=== PATIENT | female | born 1935 | race Caucasian/White ===

== ENCOUNTER → 2017-11-22 | Outpatient (CLI) | payer MEDICARE, OTHER ==
[~2017-11-22] MED LIST: ASPI81EC PO; CIPR500 PO; ESOM20 PO; LEVSOD50 PO; LOSA50 PO; METO25ER PO; ROSU5 PO; [UNRECOGNIZED DRUG - OTHER]
== END | disposition home or self-care (01) ==
LOC: LAB SHORT 13:55 → LAB 13:55 → LAB FUT 11-11 13:55
PROVIDERS: Physician Assistant
DX: R19.7 Diarrhea, unspecified (principal)
CPT/HCPCS: 82710

== ENCOUNTER → 2018-08-25 | Outpatient (CLI) | payer MEDICARE, OTHER | END | disposition home or self-care (01) | LOC: LAB 11:45 → LAB SHORT 11:45 | DX: J47.9 Bronchiectasis, uncomplicated (principal) | CPT/HCPCS: 87070; 87077; 87186; 87205 ==

== ENCOUNTER 2020-01-28 22:05 | Emergency (ER) | payer MEDICARE, OTHER ==
[~2020-01-28] VITALS: Ht 160 cm; Wt 70.8 kg
[2020-01-28 22:47] LABS: BASOPHILS ABSOLUTE AUTO 0.05 K/mm3 (0.00-0.23); BASOPHILS PERCENT AUTO 0 % (0-2); EOSINOPHILS ABSOLUTE AUTO 0.07 K/mm3 (0.00-0.68); EOSINOPHILS PERCENT AUTO 0 % (0-6); Hematocrit 32.8 % (33.0-51.0); Hemoglobin 10.4 g/dL (11.5-16.0); Mean Corpuscular HGB 32.2 pg (26.0-34.0); Mean Corpuscular HGB Conc 31.7 g/dL (31.5-36.5); Mean Corpuscular Volume 102 fL (80-100); Mean Platelet Volume 9.6 fL (9.1-12.4); Platelet Count 244 K/mm3 (150-400); RDW Coefficient Variation 14.7 % (11.7-14.2); RDW Standard Deviation 54.8 fL (35.1-46.3); Red Blood Cell Count 3.23 M/mm3 (3.80-5.20); White Blood Cell Count 27.24 K/mm3 (4.00-11.30)
[2020-01-28 22:48] LABS: IMMATURE GRAN ABSOLUTE AUTO 0.11 K/mm3 (0.00-0.10); IMMATURE GRAN PERCENT AUTO 0 % (0-1); LYMPHOCYTES ABSOLUTE AUTO 18.62 K/mm3 (0.84-5.20); LYMPHOCYTES PERCENT AUTO 68 % (21-46); MONOCYTES ABSOLUTE AUTO 1.19 K/mm3 (0.16-1.47); MONOCYTES PERCENT AUTO 4 % (4-13); NEUTROPHILS PERCENT AUTO 26 % (41-73)
[2020-01-28 23:03] LABS: Albumin, Blood 2.5 g/dL (3.4-5.0); Albumin/Globulin Ratio 0.7 (0.8-1.8); Bilirubin, Total 0.4 mg/dL (0.1-1.0); Bun/Creatinine Ratio 23.1 (12.0-20.0); Calcium, Blood 10.2 mg/dL (8.5-10.1); Creatinine, Blood 1.43 mg/dL (0.40-1.00); Globulin, Blood 3.8 g/dL (2.2-4.0); Potassium, Blood 3.6 mmol/L (3.5-5.5); Total Protein, Blood 6.3 g/dL (6.4-8.2)
[2020-01-29 01:57] LABS: Adenovirus F 40/41 Not Detected (NOT DETECT); Astrovirus Not Detected (NOT DETECT); Campylobacter Sp Not Detected (NOT DETECT); Cryptosporidium Not Detected (NOT DETECT); Cyclospora Cayetanensis Not Detected (NOT DETECT); E. Coli O157 Not Detected (NOT DETECT); Entamoeba Histolytica Not Detected (NOT DETECT); Enteroaggregative E. coli-EAEC Not Detected (NOT DETECT); Enteropathogenic E. coli-EPEC Not Detected (NOT DETECT); Enterotoxigenic E. coli-ETEC Not Detected (NOT DETECT); Giardia Lamblia Not Detected (NOT DETECT); Norovirus GI/GII Not Detected (NOT DETECT); Plesiomonas Shigelloides Not Detected (NOT DETECT); Rotavirus A Not Detected (NOT DETECT); Salmonella Sp Not Detected (NOT DETECT); Sapovirus Not Detected (NOT DETECT); Shiga Toxin-prod E. coli-STEC Not Detected (NOT DETECT); Shigella/Enteroin E. coli-EIEC Not Detected (NOT DETECT); Vibrio Cholerae Not Detected (NOT DETECT); Vibrio Sp Not Detected (NOT DETECT); Yersinia Enterocolitica Not Detected (NOT DETECT)
[2020-01-29] MEDS ORDERED: Vancocin HCl125 MG PO (03:18)
== END 2020-01-29 04:07 | disposition home or self-care (01) ==
LOC: ER 22:05
PROVIDERS: Physician Assistant
DX: A04.72 Enterocolitis due to Clostridium difficile, not specified as recurrent (principal); E03.9 Hypothyroidism, unspecified; N18.9 Chronic kidney disease, unspecified; Z79.899 Other long term (current) drug therapy; Z79.82 Long term (current) use of aspirin; Z88.2 Allergy status to sulfonamides; Z88.1 Allergy status to other antibiotic agents
CPT/HCPCS: 0097U; 36415; 80053; 83690; 85025; 87324; 99284-25; J2405; J3370; J7030

== ENCOUNTER 2020-11-24 18:56 | Inpatient (IN) | payer MEDICARE, OTHER ==
[~2020-11-24] VITALS: Ht 165.1 cm; Wt 74.4 kg
[~2020-11-24 18:56] MED LIST changes: +EUTHYROX50 MCG PO; -LEVSOD50 PO; +Vancocin HCl125 MG PO
[2020-11-24 19:39] LABS: Hematocrit 34.9 % (33.0-51.0); Hemoglobin 11.5 g/dL (11.5-16.0); Mean Corpuscular HGB 31.3 pg (26.0-34.0); Mean Corpuscular Volume 95 fL (80-100); Mean Platelet Volume 9.1 fL (9.1-12.4); Platelet Count 168 K/mm3 (150-400); RDW Coefficient Variation 13.2 % (11.7-14.2); Red Blood Cell Count 3.68 M/mm3 (3.80-5.20); White Blood Cell Count 10.23 K/mm3 (4.00-11.30)
[2020-11-24 19:59] LABS: Albumin/Globulin Ratio 0.9 (0.8-1.8); Bilirubin, Total 0.3 mg/dL (0.1-1.0); Bun/Creatinine Ratio 23.9 (12.0-20.0); Calcium, Blood 8.7 mg/dL (8.5-10.1); Creatinine, Blood 1.84 mg/dL (0.40-1.00); Globulin, Blood 3.4 g/dL (2.2-4.0); Potassium, Blood 4.4 mmol/L (3.5-5.5); Total Protein, Blood 6.4 g/dL (6.4-8.2)
[2020-11-24 20:04] LABS: Source, Urine Catheter
[2020-11-24 20:07] LABS: Appearance, Urine Hazy (Clear); Bilirubin, Urine Neg (Neg); Blood, Urine 2+ (Neg); Color, Urine Yellow (P-Yellow); Glucose Qualitative, Urine Neg (Neg); Ketones, Urine 1+ (Neg); Leukocyte Esterase, Urine Neg (Neg); Nitrite, Urine Neg (Neg); Protein, Urine 4+ (Neg); Urobilinogen, Urine NORM (Normal)
[2020-11-24 20:15] LABS: Amorphous Heavy (0-Heavy); Bacteria Few /hpf; Granular Casts 0-2 /lpf (0); Red Blood Cells, Urine 0-2 /hpf (0-2); Squamous Epithelial Cells Not Seen /hpf (Few); White Blood Cells, Urine 0-2 /hpf (0-5)
[2020-11-24 20:22] LABS: SARS-Cov-2 (COVID-19) PCR, MMC POSITIVE (NEGATIVE)
[2020-11-24 20:32] LABS: BAND PERCENT MAN 3 % (0-8); BASOPHILS PERCENT MAN 0 % (0-2); EOSINOPHILS PERCENT MAN 0 % (0-6); LYMPHOCYTES % ATYPICAL MANUAL 1 % (0-0); LYMPHOCYTES ABSOLUTE MAN 2.86 K/mm3 (0.84-5.20); LYMPHOCYTES PERCENT MAN 27 % (21-46); MONOCYTES ABSOLUTE MAN 0.61 K/mm3 (0.16-1.47); MONOCYTES PERCENT MAN 6 % (4-13); NEUTROPHILS ABSOLUTE MAN 6.75 K/mm3 (1.96-9.15); SEG NEUTROPHILS PERCENT MAN 63 % (41-73); TOTAL CELLS COUNTED 100
[2020-11-24] MEDS ORDERED: LOSA50 PO (21:34)
[2020-11-24] MEDS ORDERED: IPRAT-ALBUT 0.5-3 ML INH (21:36)
[2020-11-24] MEDS ORDERED: ONE-A-DAY PRO200 MCG (21:37)
[2020-11-24] MEDS ORDERED: ERGO400 (21:37)
[2020-11-25 06:19] LABS: BASOPHILS ABSOLUTE AUTO 0.02 K/mm3 (0.00-0.23); BASOPHILS PERCENT AUTO 0 % (0-2); EOSINOPHILS PERCENT AUTO 0 % (0-6); Hematocrit 36.9 % (33.0-51.0); Hemoglobin 11.6 g/dL (11.5-16.0); IMMATURE GRAN ABSOLUTE AUTO 0.07 K/mm3 (0.00-0.10); IMMATURE GRAN PERCENT AUTO 1 % (0-1); LYMPHOCYTES ABSOLUTE AUTO 1.31 K/mm3 (0.84-5.20); LYMPHOCYTES PERCENT AUTO 14 % (21-46); MONOCYTES ABSOLUTE AUTO 0.45 K/mm3 (0.16-1.47); MONOCYTES PERCENT AUTO 5 % (4-13); Mean Corpuscular HGB 31.5 pg (26.0-34.0); Mean Corpuscular HGB Conc 31.4 g/dL (31.5-36.5); Mean Platelet Volume 9.4 fL (9.1-12.4); NEUTROPHILS ABSOLUTE AUTO 7.72 K/mm3 (1.96-9.15); NEUTROPHILS PERCENT AUTO 81 % (41-73); Platelet Count 150 K/mm3 (150-400); RDW Coefficient Variation 13.2 % (11.7-14.2); RDW Standard Deviation 49.2 fL (35.1-46.3); Red Blood Cell Count 3.68 M/mm3 (3.80-5.20); White Blood Cell Count 9.57 K/mm3 (4.00-11.30)
[2020-11-25 06:20] LABS: Mean Corpuscular Volume 100 fL (80-100)
[2020-11-25 06:43] LABS: Albumin, Blood 2.6 g/dL (3.4-5.0); Albumin/Globulin Ratio 0.7 (0.8-1.8); Bilirubin, Total 0.3 mg/dL (0.1-1.0); Bun/Creatinine Ratio 23.3 (12.0-20.0); Calcium, Blood 8.1 mg/dL (8.5-10.1); Creatinine, Blood 1.8 mg/dL (0.40-1.00); Globulin, Blood 3.5 g/dL (2.2-4.0); Potassium, Blood 5.1 mmol/L (3.5-5.5); Total Protein, Blood 6.1 g/dL (6.4-8.2)
--- NOTE | 2020-11-25 17:43 | NUR ---
1540 PT ADMITTED TO MEDICAL FLOOR VIA GURNEY, PT TRANSFERED TO BED WITH ONE ASSIST, PT IS UNSTEADY AND WEAK APPEARING. PT DENIES PAIN, N/V. PT REPORTS SOB WITH EXERTION, ON 2.5L O2 NC, LUNGS COARSE T/O. SKIN CDI. A&OX3, PLEASANT AND COOPERATIVE, AGUA CALIENTE. NO NEW CHANGES OR CONCERNS.
--- NOTE | 2020-11-26 05:09 | NUR ---
RN summary: Patient is pale. Skin warm and dry. Pt is [place] and staff wearing N95 mask hinders pt being able to lip read. Pt was oriented to self, place. Unsure of month and city hospital was in. Pt has been up x1 to the bedside commode. Pt moves slowly. Breath sounds were diminished but no crackles or wheezing heard. Pt is on 2.5 Liters of O2 NC. Pt not c/o SOB, no evidence of any respiratory distress. Pt has rested well. Pt has used the call light appropriately. Bed alarm on. Pt is in enhanced isolation precautions.
[2020-11-26 08:08] LABS: Bun/Creatinine Ratio 32.1 (12.0-20.0); Calcium, Blood 8.5 mg/dL (8.5-10.1); Creatinine, Blood 1.65 mg/dL (0.40-1.00); Potassium, Blood 4.8 mmol/L (3.5-5.5)
--- NOTE | 2020-11-26 17:37 | NUR ---
SHIFT SUMMARY PATIENT IS ALERT AND SITTING UP IN BED. SHE IS [place] AND CONFUSED ON SOME COMMANDS, BUT ORIENTED TO HERSELF AND THE FACT THAT SHE IS IN THE HOSPITAL.SHE IS UP AT BEDSIDE COMMODE WITH ONE ASSIST, BUT NEEDS MONITORING BECAUSE OF WEAKNESS, LOW O2, AND BALANCE ISSUES. PATIENT WAS ASSESSED BY RT AND TO SEE IF SHE COULD BE DISCHARGED, BUT IT WAS ULTIMATELY DECIDED THAT SHE IS TOO GREAT A FALL RISK AND CANNOT MAINTAIN HER O2 SATS WELL ENOUGH. , GUILLERMO, HAS BEEN INFORMED ABOUT HER STATUS AND WOULD LIKE TO BE KEPT UPDATED. HIS INFO IS IN HER PAPER CHART.
[2020-11-27 05:45] LABS: Bun/Creatinine Ratio 36.5 (12.0-20.0); Calcium, Blood 8.5 mg/dL (8.5-10.1); Creatinine, Blood 1.56 mg/dL (0.40-1.00); Potassium, Blood 4.6 mmol/L (3.5-5.5)
--- NOTE | 2020-11-27 07:50 | NUR ---
Rn summary: Patient is [place], sl confused. Does not use call light, bed alarm on, up freq to BSC. Pt does follow simple commands. Pt is on 4 liters O2 sats >90%. Pt has crackles dung bases. States she does feel SOB, which increases with activity. Covid + Isolation continues.
--- NOTE | 2020-11-27 19:21 | NUR ---
SHIFT SUMMARY PATIENT VERY DYSPNEIC AND CLIMBING OUT OF BED FREQUENTLY DURING SHIFT. OXYGEN TITRATED TO 15L/HI FLOW TO MAINTAIN OXYGEN SATURATION ABOVE 92%. PATIENT WORK OF BREATHING AND RESPIRATORY RATE INCREASED TO OVER 40, PATIENT PLACED ON V60 BIPAP. PATIENT PULLING BIPAP MASK OFF AND SETTING OFF BED ALARM SEVERAL TIMES PER HOUR. CALL TO DR. HERNANDEZ, NEW ORDERS FOR ATIVAN Q2. ALTERNATING BIPAP AND HIFLOW DUE TO BIPAP MASK INTOLERANCE. BED ALARM ON. PATIENT CONFUSED AND PULLING AT LINES, FREQUENT REDIRECTION AND REASSURANCE NEEDED. CALL TO TO UPDATE ON PATIENT STATUS.
--- NOTE | 2020-11-27 22:52 | NUR ---
PT UPDATE PT ATTEMPTING TO GET UP OUT OF BED, THIS RN TO BEDSIDE. PT C/O SORE THROAT STATES SHE NEEDS TO GET UP BECAUSE HER THROAT HURTS. DOES NOT FOLLOW DIRECTIONS. IS CONFUSED SATS 94-95% ON 11 L VIA NC AT THIS TIME. PT GIVEN SMALL SIPS OF WATER. AGREES THAT IT HELPED HER THROAT WHEN THIS RN ASKS. PT OTHERWISE DOES NOT RESPOND TO QUESTIONS, QUIETLY MOANS, OCCASIONAL COUGH.
--- NOTE | 2020-11-27 23:30 | NUR ---
TRANSFER REPORT GIVEN DOORMAKER TO ASSUME CARE OF PT. PT RESTING COMFORTABLY IN BED ON 15L O2 BEFORE TRANSFER. SATS UUPER 90'S ON ESTRELLA BIOX. PHYSICAL ASSESSMENT REMAINS UNCHANGED. NO COMPLAINTS OF PAIN. PT VERY DROWSY BUT AWAKES TO VERBAL STIMULI. PT WILL NOT KEEP BIPAP ON THUS [address] VITALS ARE STB[place]. PT TRANSFERRED TO PCU 9 AT 2200, BELONGINGS IN PLACE.
--- NOTE | 2020-11-27 23:42 | NUR ---
PT UPDATE PT FINISHES BREATHING TX, TITRATED DOWN TO 8 L 02 ON HIGH FLOW NC D/T SATS 97-98% AT THIS TIME. PT APPEARS LESS RESTLESS AND IS QUIETER FOLLOWING DOSE OF TYLENOL AND ATIVAN.
[2020-11-28 04:22] LABS: BASOPHILS ABSOLUTE AUTO 0.03 K/mm3 (0.00-0.23); BASOPHILS PERCENT AUTO 0 % (0-2); EOSINOPHILS PERCENT AUTO 0 % (0-6); Hematocrit 33.9 % (33.0-51.0); Hemoglobin 11.3 g/dL (11.5-16.0); IMMATURE GRAN ABSOLUTE AUTO 0.25 K/mm3 (0.00-0.10); IMMATURE GRAN PERCENT AUTO 2 % (0-1); LYMPHOCYTES ABSOLUTE AUTO 0.51 K/mm3 (0.84-5.20); LYMPHOCYTES PERCENT AUTO 4 % (21-46); MONOCYTES ABSOLUTE AUTO 0.97 K/mm3 (0.16-1.47); MONOCYTES PERCENT AUTO 7 % (4-13); Mean Corpuscular HGB 31.5 pg (26.0-34.0); Mean Corpuscular HGB Conc 33.3 g/dL (31.5-36.5); Mean Platelet Volume 9.6 fL (9.1-12.4); NEUTROPHILS ABSOLUTE AUTO 11.71 K/mm3 (1.96-9.15); NEUTROPHILS PERCENT AUTO 87 % (41-73); Platelet Count 216 K/mm3 (150-400); RDW Coefficient Variation 13.2 % (11.7-14.2); RDW Standard Deviation 45.6 fL (35.1-46.3); Red Blood Cell Count 3.59 M/mm3 (3.80-5.20); White Blood Cell Count 13.47 K/mm3 (4.00-11.30)
[2020-11-28 04:23] LABS: Mean Corpuscular Volume 94 fL (80-100)
[2020-11-28 04:50] LABS: Bun/Creatinine Ratio 38.5 (12.0-20.0); Calcium, Blood 8.5 mg/dL (8.5-10.1); Creatinine, Blood 1.48 mg/dL (0.40-1.00); Potassium, Blood 4.6 mmol/L (3.5-5.5)
--- NOTE | 2020-11-28 07:46 | NUR ---
SHIFT SUMMARY PT AOX1. SOMETIMES STATES NEEDS, DOES NOT ANSWER QUESTIONS MOST OF THE TIME. IS DIFFICULT TO REDIRECT. UP TO BEDSIDE COMMODE W/STAFF, NEEDS X2 PERSON ASSIST W/GAIT BELT. WEARING ATTENDS, OCCASIONAL SMALL AMOUNTS OF URINE IN ATTENDS. TRIED TO DRINK FROM REMOTE/CALL LIGHT. SOMETIMES REACHES FOR THINGS SHE SEEMS TO IMAGINE IN AIR, GRABS AT STAFF GOWNS. TOOK OFF NC X3 TIMES IN NIGHT. OTHERWISE RESTFUL WHEN ENCOURAGED TO REPOSITION AND PROP W/PILLOWS W/ASSISTANCE FOR BRIEF PERIODS. TACHYPNEIC 30'S-40'S. C/O PAIN, NON-SPECIFIC. WAS C/O SORE THROAT ON ARRIVAL FROM MED FLOOR.
[2020-11-28 15:27] LABS: Source, Urine Catheter
[2020-11-28 15:45] LABS: Appearance, Urine Hazy (Clear); Bilirubin, Urine Neg (Neg); Blood, Urine 3+ (Neg); Color, Urine Yellow (P-Yellow); Glucose Qualitative, Urine Neg (Neg); Ketones, Urine Neg (Neg); Leukocyte Esterase, Urine Neg (Neg); Nitrite, Urine Neg (Neg); Protein, Urine 4+ (Neg); Urobilinogen, Urine NORM (Normal)
[2020-11-28 15:56] LABS: Amorphous Light (0-Heavy); Hyaline Casts 0-2 /lpf (0-2); Red Blood Cells, Urine 0-2 /hpf (0-2)
[2020-11-28 15:57] LABS: Bacteria Many /hpf; Transitional Epithelial Cells Rare /hpf (0-Rare)
[2020-11-28 15:58] LABS: Squamous Epithelial Cells Rare /hpf (Few)
--- NOTE | 2020-11-28 18:10 | NUR ---
SHIFT SUMMARY PT WAS VERY RESTLESS AT THE START OF SHIFT, PT WAS PULLING OFF HER O2 AND TELE AND TRYING TO GET OUT OF BED. PT IS A HIGH FALL RISK SHE IS WEAK WITH UNSTEADY GAIT. PT IS CONFUSED AND DOES NOT FOLLOW DIRECTION. PT WAS PLACED IN SOFT BILATERAL WRIST RESTRAINTS. PT HAS BEEN MOANING AND OCCASSIONALLY RESTLESS AND HAS RECEIVED ATIVAN AND MEDICATED PER EMAR FOR WHAT SEEMS TO BE ANXIETY. PT HAS BEEN TACHYCARDIC THIS AFTERNOON AND RN CATRINAO ADDRESSED THIS MULTIPLE TIMES WITH THE DR AND PT WAS ORDERED 1 500ML BAG OF NS TO RUN AT 100ML; NO CHANGES WITH HR OF YET, PT IS SUSTAINING 100-120bpm. PT HAS NOT BEEN VERY VERBAL TODAY, UNABLE TO MAKE HER NEEDS KNOWN. PT IS UNABLE TO FOLLOW DIRECTIONS AND WILL NOT OPEN HER EYES TO SAFELY GET OUT OF BED. PT IS RESTING IN BED AT THIS TIME
--- NOTE | 2020-11-28 22:19 | NUR ---
PHYSICIAN CONTACT O2 SATS IN THE LOW 80S DESPITE 15L HIGH FLOW. ADDITIONAL 15L NONREBREATHER PLACED, RT CALLED TO BEDSIDE DESPITE SATS AT 82. BIPAP PLACED 03/29 FI02 100% RR IN THE MID 40S-50S, SATS MAINTAINING AT 92 CURRENTLY. JORDAN MAN PROVIDER NOTIFIED, NO NEW ORDERS AT THIS TIME. WILL CONTINUE TO MONITOR.
[2020-11-29 00:41] LABS: PCO2 Arterial 61.8 mmHg (35-45); PO2 Arterial 85.8 mmHg (80-100); pH Blood Arterial 7.17 (7.35-7.45)
--- NOTE | 2020-11-29 01:43 | NUR ---
UPDATE: DR. SANDOVAL SPOKE WITH PT'S , AT THIS TIME HE WOULD LIKE TO CONTINUE FULL CODE/FULL TX. NEW ORDERS FOR SODIUM BICARB, LASIX, AND REMDESIVIR. CURRENTLY WAITING FOR 2ND ABG RESULTS. PT CONTINUES TO HAVE INCREASED WORK OF BREATHING ON BIPAP WITH RR IN THE MID 40S, IV ATIVAN GIVEN. SATS MAINTAINING ABOVE 90. WILL CONTINUE TO MONITOR.
[2020-11-29 01:53] LABS: PCO2 Arterial 50.1 mmHg (35-45); PO2 Arterial 81.2 mmHg (80-100)
[2020-11-29 01:54] LABS: pH Blood Arterial 7.25 (7.35-7.45)
--- NOTE | 2020-11-29 04:43 | NUR ---
PT CONTINUES TO HAVE AN INCREASED WORK OF BREATHING WITH RR MID 40S TO 50S. SATS MAINTAINED ABOVE 92 ON BIPAP. IV ATIVAN AND MORPHINE GIVEN. WILL CONTINUE TO MONITOR.
[2020-11-29 06:10] LABS: Hematocrit 36.8 % (33.0-51.0); Hemoglobin 11.8 g/dL (11.5-16.0); Mean Corpuscular HGB 31.4 pg (26.0-34.0); Mean Corpuscular HGB Conc 32.1 g/dL (31.5-36.5); Mean Corpuscular Volume 98 fL (80-100); Mean Platelet Volume 9.9 fL (9.1-12.4); NRBC ABSOLUTE 0.02 K/mm3 (0.00-0.02); NRBC Auto 0.1 /100 WBC (0.0-0.2); Platelet Count 249 K/mm3 (150-400); RDW Coefficient Variation 13.3 % (11.7-14.2); Red Blood Cell Count 3.76 M/mm3 (3.80-5.20); White Blood Cell Count 25.15 K/mm3 (4.00-11.30)
[2020-11-29 06:38] LABS: Bun/Creatinine Ratio 32.1 (12.0-20.0); Calcium, Blood 8.3 mg/dL (8.5-10.1); Creatinine, Blood 2.09 mg/dL (0.40-1.00); Magnesium, Blood 2.6 mg/dL (1.6-2.4); Phosphorus, Blood 4.5 mg/dL (2.5-4.9); Potassium, Blood 5.3 mmol/L (3.5-5.5)
[2020-11-29 06:45] LABS: BAND PERCENT MAN 9 % (0-8); BASOPHILS PERCENT MAN 0 % (0-2); EOSINOPHILS PERCENT MAN 0 % (0-6); MONOCYTES ABSOLUTE MAN 0.75 K/mm3 (0.16-1.47); MONOCYTES PERCENT MAN 3 % (4-13); NEUTROPHILS ABSOLUTE MAN 24.39 K/mm3 (1.96-9.15); SEG NEUTROPHILS PERCENT MAN 88 % (41-73); TOTAL CELLS COUNTED 100
--- NOTE | 2020-11-29 08:49 | NUR ---
REPORT GIVEN TO ALBERTO CEJA RN, PT TO BE TRANSFERRED TO ICU 4. PT'S INFORMED OF PT'S MOVE TO ICU VIA T/C.
--- NOTE | 2020-11-29 10:00 | NUR ---
TRANSFER NOTE- PT TRANSFERRED FROM MEDICAL FLOOR TO ICU IN BED. PT UNRESPONSIVE, MOVING SPONTANEOUSLY IN BED, PULLING AT LINES. UNABLE TO FOLLOW ANY DIRECTIONS. RESPIRATORY DISTRESS-RESP RATE 44-48 BPM ON BIPAP, LUNGS COARSE WITH EXP WHEEZES AND DECREASED LEFT BASE. PERRL. NSR TO SINUS TACH. SKIN COLOR PALE, COOL. UO VIA [address] COURT. NO EDEMA. DRESSING ON COCCYX INTACT.
--- NOTE | 2020-11-29 10:50 | NUR ---
POWER GLIDE PLACED TO RIGHT UPPER ARM BY JAVIER HERNANDEZ. PIV TO RIGHT WRIST. NOTIFICATION TO OF PT'S DECLINING STATUS, NEED TO TRANSFER TO ICU, INTUBATION, FULL CODE. DR. LE AT BEDSIDE-INTUBATED WITH 8.0 ETT, POSITIVE BREATH SOUNDS AND COLOR CHANGE 1030-PROPOFOL 50 MG GIVEN. RT AT BEDSIDE BAGGING PT. 1031-ROCURONIUM 50 MG GIVEN 1032-INTUBATED WITHOUT DIFFICULTY 24 AT THE GUMS 1033-PROPOFOL 50 MG HYPOTENSIVE AFTER INTUBATION, RESPONSIVE TO FLUID BOLUS AND PHENYLEPHRINE TOTAL 300MG GIVEN BY DR. LE TO VENT SETTINGS-AC 22 TV 350 PEEP 5 FI02 100%. SUCTIONED FOR LARGE AMOUNT BROWN SECRETIONS-SPECIMEN SENT. OGT PLACED BY DR. LE, POSITION VERIFIED BY AIR BOLUS AND RETURN OF DARK GREEN SECRETIONS. POST XRAY DONE.
--- NOTE | 2020-11-29 13:12 | NUR ---
PT'S HERE-UPDATED. STATES TALKED WITH PT'S SALES HUNTER IN [place]-SUGGESTS TWO MORE DAYS OF TREATMENT AND THEN REEVAULATE. EXPLAINED PLAN OF CARE. FLUID BOLUS INFUSING WITH IMPROVED BLOOD PRESSURE. MOVING, RESTLESS IN BED. PROPOFOL INCREASED FOR SEDATION.
[2020-11-29 15:03] LABS: PCO2 Arterial 36.1 mmHg (35-45); PO2 Arterial 46 mmHg (80-100); pH Blood Arterial 7.39 (7.35-7.45)
--- NOTE | 2020-11-29 15:12 | NUR ---
Patient is lying in bed and sleeping. Patient's spouse, Neel, is in the hallway outside patient's rm in a wheelchair and heading out to his car. I push the wheelchair the wheel chair and we talk about their 54 yr marriage and how challenging it is to be seperated and to see her struggling. He also explains about her [place]. I provide therapeutic listening, companionship and a calming presence. Neel responds well and shows signs of increased hope. I will continue to remain available to patient and family.
[2020-11-29 16:13] LABS: Base Excess Venous -2.3 mmol/L; Bicarbonate Venous 22.3 mmol/L (24.0-30.0); PCO2 Venous 42 mmHg (38-42); PO2 Venous 51 mmHg (38-42); pH Blood Venous 7.35 (7.34-7.37)
--- NOTE | 2020-11-29 16:58 | NUR ---
RIGHT ARM PICC LINE PLACED BY JAVIER HERNANDEZ, PCXR DONE, VBG DONE AND TRANSDUCED LINE WITH MEAN OF 11 MMHG. OK TO USE PER DR. LE. VENT CHANGES, NEEDED TO INCREASE FI02 TO MAINTAIN SATURATIONS. RESTLESS, REPOSITIONED AND PROPOFOL AT 40 MCG/KG/MIN FOR VENT TOLERANCE. HYPOTENSIVE, HAS HAD 3 LITERS FLUID. LOW URINE OUTPUT. WILL START LEVOPHED
--- NOTE | 2020-11-29 17:17 | NUR ---
LEVOPHED STARTED FOR HYPOTENSION.
--- NOTE | 2020-11-29 19:00 | NUR ---
UDPATE TO DR. LE REGARDING UO, HYPOTENSION, TACHYCARDIC 100-120. PLANS TO CHANGE TO NEOSYNEPHRINE. PT'S DAUGHTER HERE-UPDATED.
--- NOTE | 2020-11-29 23:24 | NUR ---
ASSUMED CARE AT 1900 PT LAYING IN BED INTUBATED WITH VENT SETTINGS AC/VC+ 22, TV 350, PEEP 5, FIO2 95%; LARGE AMOUNT OF THICK BROWN/GREEN SECREATIONS FROM ETT. PT REACTIVE TO NOXIOUS STIMULI; WEAK GAG AND COUGH; PROPOFOL INFUSING AT 45MCG/KG/MIN. AFEBRILE. HR 70-80'S; IRREGULAR RHYTHM. LEVOPHED DC'D AND KENNY STARTED AT THE BEGINING OF SHIFT; KENNY TITRATED UP TO 40MCG/MIN. OG TO LIS. HAMILTON IN PLACE AND DRAINING TO GRAVITY. PICC TO DEBORA PATENT WITH DRESSING C/D/I. LR INFUSING AT 150ML/HR. SEE SHIFT ASSESSMENT FOR FULL ASSESSMENT.
[2020-11-30 04:13] LABS: Hematocrit 29.4 % (33.0-51.0); Hemoglobin 9.7 g/dL (11.5-16.0); Mean Corpuscular HGB 31.8 pg (26.0-34.0); Mean Corpuscular Volume 96 fL (80-100); Mean Platelet Volume 10.3 fL (9.1-12.4); NRBC ABSOLUTE 0.03 K/mm3 (0.00-0.02); NRBC Auto 0.1 /100 WBC (0.0-0.2); Platelet Count 249 K/mm3 (150-400); RDW Coefficient Variation 13.6 % (11.7-14.2); RDW Standard Deviation 48.1 fL (35.1-46.3); Red Blood Cell Count 3.05 M/mm3 (3.80-5.20); White Blood Cell Count 21.13 K/mm3 (4.00-11.30)
[2020-11-30 04:28] LABS: Bun/Creatinine Ratio 32.9 (12.0-20.0); Calcium, Blood 8.3 mg/dL (8.5-10.1); Creatinine, Blood 1.73 mg/dL (0.40-1.00); Magnesium, Blood 2.2 mg/dL (1.6-2.4); Phosphorus, Blood 2.3 mg/dL (2.5-4.9); Potassium, Blood 4.9 mmol/L (3.5-5.5)
[2020-11-30 04:55] LABS: PCO2 Arterial 35.4 mmHg (35-45); PO2 Arterial 78.7 mmHg (80-100)
--- NOTE | 2020-11-30 04:55 | NUR ---
UPDATE DURING REASSESSMENT AT 0400 ALONG WITH CHEST X-RAY PT SPO2 DECREASED TO LOW 80'S WITH RR IN HIGH 40'S, PT MORE ALERT AND PULLING AT RESTRAINTS. FIO2 INCREASED UP TO 100% AND PROPOFOL TITRATED UP TO 60MCG/KG/MIN. SPO2 NOW 97% AND RR 22-28.
--- NOTE | 2020-11-30 06:35 | NUR ---
END OF SHIFT SUMMARY PT CONT TO BE INTUBATED WITH VENT SETTINGS AC/VC+ 22, TV 350, PEEP 5, FIO2 100%; LARGE AMOUNT OF BROWN/GREEN THICK ETT SECREATIONS. WHEN PROPOFOL LOWERED, PT RR INCREASED, HR INCREASED, INCREASED RESTLESSNESS AND SPO2 DECREASED; PROPOFOL NOW INFUSING AT 60MCG/KG/MIN AND NOW VSS. AFEBRILE. HR 60-70. SBP 100-120; KENNY INFUSING AT 40MCG/MIN; MAP >65. OG TO LIS WITH 300ML OF GREEN OUTPUT. HAMILTON PATENT AND DRAINING TO GRAVITY. PICC TO DEBORA PATENT AND DRESSING C/D/I. LR INFUSING AT 150ML/HR. WILL REPORT TO AM RN WHEN AVIALABLE.
[2020-11-30 06:46] LABS: BAND PERCENT MAN 3 % (0-8); BASOPHILS PERCENT MAN 0 % (0-2); EOSINOPHILS PERCENT MAN 0 % (0-6); LYMPHOCYTES ABSOLUTE MAN 0.63 K/mm3 (0.84-5.20); LYMPHOCYTES PERCENT MAN 3 % (21-46); METAMYELOCYTE ABSOLUTE MAN 0.21 K/mm3 (0.00-0.00); METAMYELOCYTE PERCENT MAN 1 % (0-0); MONOCYTES ABSOLUTE MAN 0.63 K/mm3 (0.16-1.47); MONOCYTES PERCENT MAN 3 % (4-13); NEUTROPHILS ABSOLUTE MAN 19.65 K/mm3 (1.96-9.15); SEG NEUTROPHILS PERCENT MAN 90 % (41-73); TOTAL CELLS COUNTED 100
--- NOTE | 2020-11-30 08:15 | NUR ---
ASSESSMENT- PT SEDATED WITH PROPOFOL AT 60 MCG/KG/MIN, QUIET. DECREASED TO 50 MCG/KG/MIN. DOES BECOME SLIGHTLY RESTLESS WITH REPOSITIONING BUT THEN QUICKLY QUIETS.ORALLY INTUBATED, TUBE SECURE. TOLERATING VENT SETTINGS. 100% FI02, SATURATIONS STABLE. LUNGS COARSE WITH WHEEZES LEFT SIDE, DIMINISHED BASES. APICAL REGULAR, NSR. BP STABLE. NEOSYNEPHRINE GTT AT 40 MCG/MIN-DECREASED TO 20 MCG/MIN. NS TKO. RIGHT UPPER ARM PICC INTACT, RIGHT WRIST PIV INTACT. ABDOMEN SOFT, NO BOWEL SOUNDS HEARD. OGT TO LIS WITH GREEN DRAINAGE. UO VIA HAMILTON. BILATERAL WRIST RESTRAINTS ON-EXTUBATION RISK. REPOSITIONED TO HIGH LEFT SIDE. LARGE AMOUNT ETT SECRETIONS MCCAULEY.
--- NOTE | 2020-11-30 10:14 | NUR ---
ATTEMPT SEDATION HOLIDAY, RESTLESS, INCREASED RESP RATE UP TO 40'S. UNABLE TO FOLLOW DIRECTIONS. OXYGEN SATURATIONS DECREASED TO 87% BACK TO SEDATION
--- NOTE | 2020-11-30 10:50 | NUR ---
CALL FROM RADIOLOGIST REGARDING ETT POSITION, TUBE REPOSITIONED, DR. WHITE NOTIFIED. XRAY DONE TO VERIFY. ETT 24 AT THE GUM NOW
--- NOTE | 2020-11-30 11:47 | NUR ---
PT RESTLESS, SHRUGGING SHOULDERS, INCREASED RESPIRATORY RATE. DR. WHITE HERE-RX X 2 WITH FENTANYL WITH IMPROVEMENT. VENT CHANGES-PEEP INCREASED TO 8 AND FIO2 DECREASED TO 80%. LR D/C. REPOSITIONED.
--- NOTE | 2020-11-30 14:01 | NUR ---
HAS BEEN TOLERATING VENT AFTER RX WITH FENTANYL. FENTANYL EHS TEACHER STARTED AT 25 MCG/HR PER ORDERS. REPOSITIONED. MAINTAINING SATURATIONS. KENNY RESTARTED FOR BP SUPPORT-AT 40 MCG/MIN. REMAINS SR
--- NOTE | 2020-11-30 15:45 | NUR ---
ETT RESECURED BY R.T. TO 24 JEANE. LUNG SOUNDS COARSE, DIMINISHED BASES. TOLERATING VENT. DECREASING PROPOFOL.
--- NOTE | 2020-11-30 18:12 | NUR ---
REPOSITIONED. PROPOFOL AT 40 MCG/KG/MIN FOR SEDATION, FENTANYL GTT AT 25 MCG/HR. SEDATED, TOLERATING VENT SETTINGS. VSS. NEOSYNEPHRINE AT 40 MCG/MIN FOR BP SUPPORT. NS TKO. PICC INTACT. TUBE FEEDING VIA OGT INFUSING. URINE OUTPUT ADEQUATE.
--- NOTE | 2020-11-30 19:00 | NUR ---
ASSUMED CARE ASSUMED CARE OF PATIENT. REMAINS INTUBATED- AC/VC 22/350, PEEP 8, FIO2 65%. SEDATED WITH PROPOFOL AT 40MCG/KG/MIN. FENTANYL GTT AT 25MCG/HR FOR SEDATION ADJUNCT AND FOR COMFORT. MONITOR SHOWS SR WITH BBB, RATE 70s. NEOSYNEPHRINE AT 40MCG/MIN TO MAINTAIN MAP >65. OG WITH VITAL HIGH PROTEIN AT GOAL RATE OF 25CC/HR. HAMILTON PATENT AND DRAINING TO GRAVITY. SEE SHIFT ASSESSMENT FOR FULL ASSESSMENT.
--- NOTE | 2020-12-01 | NUR ---
NEOSYNEPHRINE ATTEMTPTED TO TURN NEOSYNEPHRINE GTT OFF, BUT BP NOW 93/50(57). GTT RESTARTED AT 25MCG/MIN AT THIS TIME.
[2020-12-01 06:11] LABS: BASOPHILS ABSOLUTE AUTO 0.02 K/mm3 (0.00-0.23); BASOPHILS PERCENT AUTO 0 % (0-2); EOSINOPHILS PERCENT AUTO 0 % (0-6); Hematocrit 27.6 % (33.0-51.0); IMMATURE GRAN ABSOLUTE AUTO 0.33 K/mm3 (0.00-0.10); IMMATURE GRAN PERCENT AUTO 2 % (0-1); LYMPHOCYTES ABSOLUTE AUTO 0.28 K/mm3 (0.84-5.20); LYMPHOCYTES PERCENT AUTO 1 % (21-46); MONOCYTES ABSOLUTE AUTO 0.71 K/mm3 (0.16-1.47); MONOCYTES PERCENT AUTO 4 % (4-13); Mean Corpuscular HGB 31.8 pg (26.0-34.0); Mean Corpuscular HGB Conc 32.6 g/dL (31.5-36.5); Mean Corpuscular Volume 98 fL (80-100); Mean Platelet Volume 10.5 fL (9.1-12.4); NEUTROPHILS ABSOLUTE AUTO 18.58 K/mm3 (1.96-9.15); NEUTROPHILS PERCENT AUTO 93 % (41-73); NRBC ABSOLUTE 0.02 K/mm3 (0.00-0.02); NRBC Auto 0.1 /100 WBC (0.0-0.2); Platelet Count 213 K/mm3 (150-400); RDW Coefficient Variation 13.7 % (11.7-14.2); Red Blood Cell Count 2.83 M/mm3 (3.80-5.20); White Blood Cell Count 19.92 K/mm3 (4.00-11.30)
[2020-12-01 06:16] LABS: Bun/Creatinine Ratio 31.5 (12.0-20.0); Calcium, Blood 7.6 mg/dL (8.5-10.1); Creatinine, Blood 1.68 mg/dL (0.40-1.00); Phosphorus, Blood 2.7 mg/dL (2.5-4.9); Potassium, Blood 4.4 mmol/L (3.5-5.5)
--- NOTE | 2020-12-01 06:38 | NUR ---
SHIFT SUMMARY NO ACUTE CHANGES. REMAINS INTUBATED- VENT SETTINGS UNCHANGED EXCEPT FIO2 INCREASED TO 75%. SEDATED WITH PROPOFOL AT 40MCG/KG/MIN AND FENTANYL AT 25MCG/HR. MOVES EXTREMITIES SPONTANEOUSLY AND PURPOSEFULLY, BUT NOT FOLLOWING COMMANDS. BILATERAL SOFT WRIST RESTRAINTS IN PLACE TO PREVENT SELF-EXTUBATION. NEOSYNEPHRINE CONTINUES AT 25MCG/MIN TO MAINTAIN MAP >65. VITAL HIGH PROTEIN AT GOAL RATE OF 25CC/HR. RESIDUALS <10CC. HAMILTON PATENT AND DRAINING TO GRAVITY. WILL REPORT TO ONCOMING RN WHEN AVAILABLE.
--- NOTE | 2020-12-01 08:30 | NUR ---
ASSUMPTION OF CARE RECEIVED REPORT FROM TUAN HERNANDEZ AT 0700, ASSUMED CARE OF PATIENT. PATIENT INTUBATED AND SEDATED ON PROPOFOL OF 40MCG/KG/MIN, VENT AC 22/350/8/75%. SATS 88-89%. PATIENT BEGAN DROPPING 02 SATS TO 86-87% AT 0815. SUCTION PROVIDED, NOTIFIED RT AND DR. WHITE AT 0825 FIO2 INCREASED TO 80% AND PEEP INCREASED TO 10. RR IN THE 30'S. INCREASED PROPOFOL TO 45MCG/KG/MIN. WILL REVIEW ORDERS AND TREAT PRESCRIBED.
--- NOTE | 2020-12-01 18:29 | NUR ---
SHIFT SUMMARY PATIENT INTUBATED WITH SETTINGS OF AC 22/350/10/90%, FIO2 WAS INCREASED FROM 75 TO 90 THROUGH MORNING DUE TO 02 SATS BELOW 87%. SUCTIONING THICK, MCCAULEY SPUTUM VIA ETT FREQUENTLY. 02 SATS AT THIS TIME REMAIN 90-93. SEDATED WITH PROPOFOL OF 50MCG/KG/MIN, PATIENT WAKEFUL, RAPID RESP OF 30-40S WHEN PROPOFOL WAS LOWERED. FENTANYL CHAIN MAKER CONTINUES AT 25MCG/HR. KENNY INFUSES AT 30MCG PER B/P TO KEEP MAP ABOVE 65. TF REMAIN AT GOAL WITH MINIMAL RESIDUALS LESS THAN 10CC. HAMILTON CATHETER PATENT AND DRAINING CLEAR, YELLOW URINE, URINE OUTPUT RESPONDED TO LASIX ADMINISTRATION. PIV TO RIGHT HAND LEAKING WHEN FLUSHED, D/C'D CHARTED. PATIENT REPOSITIONED CHARTED THROUGH SHIFT FOR COMFORT. SPOKE WITH PATIENT'S ON THE PHONE DURING THE MORNING, STATED HE FELT THE PATIENT WILL GET BETTER AFTER 8 FULL DAYS OF ANTIBIOTICS BECAUSE THAT IS WHAT THE LUNG DOCTOR TOLD HIM. PATIENT STATED HIS HAS HAD PNEUMONIA MULTIPLE TIMES AND SHE GETS BETTER EVERY TIME SO HE IS HOPEFUL THAT NEXT WEEK SHE WILL MAKE A FULL RECOVERY. THEN STATED HIS DID NOT HAVE COVID, THAT DR. LE PROMISED HIM THIS WAS NOT COVID AT ALL AND THAT HE WOULD BRING IN ALL OF HIS FAMILY THAT WERE IN TOWN TO VISIT HER TODAY. RN REVIEWED WITH REGARDING VISITING RESTRICTIONS AND REVIEWED DR. LE'S NOTES AND VERIFIED WITH THAT HIS DOES HAVE COVID AND THAT WE COULD ALLOW ONE VISITOR DURING THE DESIGNATED VISITING HOURS. VERBALIZED UNDERSTANDING, BUT NO VISITORS ARRIVED TO VISIT DURING VISITING HOURS. WILL CONTINUE TO MONITOR PATIENT AND REPORT TO ONCOMING RN.
--- NOTE | 2020-12-01 19:00 | NUR ---
ASSUMED CARE ASSUMED CARE OF PATIENT. REMAINS INTUBATED- AC/VC 22/350/PEEP 10. FIO2 90%. SEDATED WITH PROPOFOL AT 50MCG/KG/MIN. FENTANYL GTT AT 25MCG/HR FOR COMFORT AND A SEDATION ADJUNCT. BILATERAL SOFT WRIST RESTRAINTS IN PLACE TO PREVENT SELF-EXTUBATION. MONITOR SHOWS SR WITH BBB, RATE 70s. NEOSYNEPHRINE AT 30MCG/MIN TO MAINTAIN MAP >65. OG WITH VITAL HIGH PROTEIN AT GOAL RATE OF 25CC/HR. HAMILTON PATENT AND DRAINING TO GRAVITY. SEE SHIFT ASSESSMENT FOR FULL ASSESSMENT.
[2020-12-02 05:11] LABS: BASOPHILS ABSOLUTE AUTO 0.07 K/mm3 (0.00-0.23); BASOPHILS PERCENT AUTO 0 % (0-2); EOSINOPHILS PERCENT AUTO 0 % (0-6); Hematocrit 31.1 % (33.0-51.0); Hemoglobin 9.9 g/dL (11.5-16.0); IMMATURE GRAN ABSOLUTE AUTO 0.89 K/mm3 (0.00-0.10); IMMATURE GRAN PERCENT AUTO 3 % (0-1); LYMPHOCYTES ABSOLUTE AUTO 0.33 K/mm3 (0.84-5.20); LYMPHOCYTES PERCENT AUTO 1 % (21-46); MONOCYTES ABSOLUTE AUTO 0.96 K/mm3 (0.16-1.47); MONOCYTES PERCENT AUTO 3 % (4-13); Mean Corpuscular HGB Conc 31.8 g/dL (31.5-36.5); Mean Corpuscular Volume 101 fL (80-100); NEUTROPHILS ABSOLUTE AUTO 26.37 K/mm3 (1.96-9.15); NEUTROPHILS PERCENT AUTO 92 % (41-73); NRBC ABSOLUTE 0.08 K/mm3 (0.00-0.02); NRBC Auto 0.3 /100 WBC (0.0-0.2); Platelet Count 258 K/mm3 (150-400); RDW Coefficient Variation 14.3 % (11.7-14.2); RDW Standard Deviation 52.3 fL (35.1-46.3); Red Blood Cell Count 3.09 M/mm3 (3.80-5.20); White Blood Cell Count 28.62 K/mm3 (4.00-11.30)
[2020-12-02 05:46] LABS: Creatinine, Blood 1.75 mg/dL (0.40-1.00); Magnesium, Blood 2.2 mg/dL (1.6-2.4); Phosphorus, Blood 3.8 mg/dL (2.5-4.9); Potassium, Blood 4.5 mmol/L (3.5-5.5)
--- NOTE | 2020-12-02 06:15 | NUR ---
HYPERGLYCEMIA DR. SANDOVAL NOTIFIED OFINCREASING HYPERGLYCEMIA- PLAN IS TO START INSULIN COVERAGE.
--- NOTE | 2020-12-02 06:42 | NUR ---
SHIFT SUMMARY NO ACUTE CHANGES. REMAINS INTUBATED- VENT SETTINGS UNCHANGED. SEDATED WITH PROPOFOL BETWEEN 45-50MCG/KG/MIN. NOW AT 45MCG/KG/MIN. FENTANYL GTT CONTINUES AT 25MCG/HR. NEOSYNEPHRINE INFUSED BETWEEN 30-50MCG/MIN TO MAINTAIN MAP >65. NOW INFUSING AT 40MCG/MIN. AFEBRILE. OG WITH VITAL HIGH PROTEIN AT GOAL RATE OF 25CC/HR. RESIDUALS <10CC. HAMILTON PATENT AND DRAINING TO GRAVITY. WILL REPORT TO ONCOMING RN WHEN AVAILABLE.
--- NOTE | 2020-12-02 09:52 | NUR ---
0800-CURRENT: PT SATS 85% ON FIO2 90%. PT ASYNCHRONOUS WITH VENT WITH PROPOFOL AT 40 MCG/KG/MIN AND FENTANYL CONTINUOUS @ 25 MCG/HR. TITRATED PROPOFOL TO 50 MCG/KG/MIN AND FENTANYL CONTINOUS TO 50 MCG/HR. LUNGS COARSE AND WHEEZY TO UPPER LOBES AND DIMINISHED IN THE BASES. SUCTION PRODUCTIVE OF X-LARGE AMOUNT OF THICK, MCCAULEY SECRETIONS. PEEP TITRATED UP TO 14 FROM 10 AND FIO2 TITRATED UP TO 100%, BUT SATS REMAINED IN THE 80'S. PEAK PRESSURES IN THE 50'S. PT PRONED PER DR. WHITE ORDER-SATS DROPPED TO THE 70'S AT THAT POINT. EMERGENT BRONCH DONE. VERY FEW SECRETIONS NOTED DURING BRONCH. VENT CHANGED TO AC/PC RATE 24, P1 24, T1 0.75, TV 200'S, PEEP 20, FIO2 100%. ULTIMATELY, PT REQUIRED PARALYTIC IN ORDER TO ADEQUATELY VENTILATE. NIMBEX DRIP INTIATED-SEE EMAR. TO4 4/4 PRIOR TO INITIATION OF PARALYTIC. ONCE PARALYZED-SATS RETURNED TO THE 90%. ECG SHOWS ST WITH RATE 100'S. MAP 50'S WITH INCREASED PEEP-THEREFORE, NEOSYNEPHRINE DRIP TITRATED UP TO T50 MCG/MIN TO MAINTAIN MAP 60-65. OGTF WITH MINIMAL RESIDUAL. PT WAS INCONTINENT OF X-LARGE AMOUNT OF BROWN LIQUID STOOL IN THE MIDST OF PRONING. A RECTAL TUBE WAS PLACED AND PT RECEIVED FULL BED BATH AND LINEN CHANGE. FOELY TO BSD WITH SMALL AMOUNT OF YELLOW URINE WITH SEDIMENT NOTED. SCAB NOTED ON PT NOSE AND COCCYX RED-WILL REPLACE MEPILEX PRIOR TO PLACING PT SUPINE-ANTICIPATE PRONING FOR 16 HRS TODAY.
--- NOTE | 2020-12-02 11:56 | NUR ---
TV TRENDING 190-220'S. Ti to 0.85, Pi 26, PEEP15 PER TYRONE, RT-SATS>90%-PT STILL PRONE.
--- NOTE | 2020-12-02 11:58 | NUR ---
PEEP DECREASED TO [address] WHITE-PLAN TO CONTINUE WITH PRONING. WILL DC PARALYTIC IN 1 HOUR IF PT MAINTAINS SATS>90% ON PEEP 10. IF PARALYTIC DISCONTINUED, WITH TITRATE UP PROPOFOL, PRECEDEX, AND FENTANYL PRN SEDATION/VENTILATOR COMPLIANCE.
--- NOTE | 2020-12-02 12:15 | NUR ---
MAINTAINS SATS>90% PRONE-FIO2 STILL 100%. PT MOTTLED FROM THE KNEES DOWN/ESPECIALLY IN THE HEELS. NEOSYNEPHRINE DRIP @ 150 MCG/MIN TO KEEP MAP 60-65. PT ARMS AND HEAD REPOSITIONED-TOLERATED WELL. PERIORBITAL EDEMA NOTED.
--- NOTE | 2020-12-02 16:00 | NUR ---
PT REMAINS INTUBATED, SEDATED, AND PARALYZED. TO4 CONTINUES 4/4 WITH NIMBEX @ 1 MCG/KG/MIN. LUNGS TIGHT AND DIMINISHED R>L. SATS 91-92% NO VENT CHANGES. CONTINUES TO TOLERATE TF WELL. HAMILTON WITH SMALL AMOUNT OF URINE OUTPUT. PT REMAINS PRONE. FOAM DRESSING PLACED TO THE BRIDGE OF THE NOSE AND TO COCCYX. PT STILL REQUIRING NEOSYNEPHRINE @ 150 MCG/KG//MIN TO KEEP MAP 60-65. A RESULT, SKIN REMAINS MOTTLED FROM THE KNEES DOWN, ESPECIALLY TO THE HEELS.
--- NOTE | 2020-12-02 17:32 | NUR ---
RN AND DR. WHITE SPOKE WITH PT SPOUSE GUILLERMO AT LENGTH REGARDING CURRENT STATUS AND PLAN OF CARE. DR. WHITE UPDATED MR. PETERS REGARDING PROGNOSIS. PALLIATIVE CARE REFERRAL PLACED.
--- NOTE | 2020-12-03 00:39 | NUR ---
HEART RATE UP TO 190'S PROPOFOL INCREASED TO 60 MCG AND EXTRA FENTANYL 50 MCG IV GIVEN FOR SEDATION. NIMBEX CONTINUES AT 1 MCG. HEART RATE CONTINUED 140'S DOCTOR CHRISTOPHER NOTIFIED, LR BOLUS AND INCREASE FENTANYL LEATHER FLESHER TO 100 MCG/HR. KENNY INCREASED TO 145 MCG DUE TO HYPOTENSION.
--- NOTE | 2020-12-03 03:32 | NUR ---
PATIENT REPOSITIONED TO SUPINE POSITION WITH ASSISTANCE OF RT. HEART RATE BACK UP TO 140'S BP DIFFICULT TO OBTAIN. BIOX 95% ON FIO2 100% VENT PC 26 PEEP15. NIMBEX 1 MCG, PROPOFOL 60 MCG, KENNY-SYNEPHERIN 180 MCG CONTINUES. BOTH LEGS MOTTLED UP TO KNEES, BOTH HANDS COLD AND PALE.
[2020-12-03 04:34] LABS: Hematocrit 32.6 % (33.0-51.0); Hemoglobin 10.1 g/dL (11.5-16.0); Mean Corpuscular HGB 32.7 pg (26.0-34.0); Mean Platelet Volume 11.3 fL (9.1-12.4); NRBC ABSOLUTE 0.59 K/mm3 (0.00-0.02); NRBC Auto 1.7 /100 WBC (0.0-0.2); Platelet Count 241 K/mm3 (150-400); RDW Coefficient Variation 14.7 % (11.7-14.2); RDW Standard Deviation 57.3 fL (35.1-46.3); Red Blood Cell Count 3.09 M/mm3 (3.80-5.20); White Blood Cell Count 33.87 K/mm3 (4.00-11.30)
[2020-12-03 04:35] LABS: Mean Corpuscular Volume 106 fL (80-100)
[2020-12-03 05:02] LABS: Anion Gap 10 mmol/L (6-16); Blood Urea Nitrogen 76 mg/dL (8-24); Bun/Creatinine Ratio 33.6 (12.0-20.0); CO2, Blood 16 mmol/L (21-32); Calcium, Blood 6.8 mg/dL (8.5-10.1); Chloride, Blood 118 mmol/L (98-108); Creatinine, Blood 2.26 mg/dL (0.40-1.00); Glomerular Filtration Rate 21 (60-); Glucose, Blood 326 mg/dL (70-99); Potassium, Blood 5.6 mmol/L (3.5-5.5); Sodium, Blood 144 mmol/L (136-145); Vancomycin, Random 15.6 ug/mL
[2020-12-03 05:04] LABS: BAND PERCENT MAN 7 % (0-8); BASOPHILS PERCENT MAN 0 % (0-2); EOSINOPHILS PERCENT MAN 0 % (0-6); LYMPHOCYTES ABSOLUTE MAN 1.35 K/mm3 (0.84-5.20); LYMPHOCYTES PERCENT MAN 4 % (21-46); MONOCYTES ABSOLUTE MAN 0.67 K/mm3 (0.16-1.47); MONOCYTES PERCENT MAN 2 % (4-13); MYELOCYTE ABSOLUTE MAN 0.67 K/mm3 (0.00-0.00); MYELOCYTE PERCENT MAN 2 % (0-0); NEUTROPHILS ABSOLUTE MAN 31.16 K/mm3 (1.96-9.15); SEG NEUTROPHILS PERCENT MAN 85 % (41-73); TOTAL CELLS COUNTED 100
[2020-12-03 05:22] LABS: Phosphorus, Blood 6.8 mg/dL (2.5-4.9)
--- NOTE | 2020-12-03 06:30 | NUR ---
DOCTOR CHRISTOPHER NOTIFIED OF CONTINUED AFIB WITH HEART RATE 130-140'S, LEVOPHED 15 MCG AND VASOPRESSIN 0.04 MCG INFUSING. BIOX 84% WITH SAME VENT SETTINGS. ORDER OBTAINED FOR LOPRESSOR VERY SLOW IV PUSH. NIMBEX INCREASED TO 2 MCG. NO URINE OUTPUT T/O NIGHT. RECTAL TUBE DRAINING LIQUID BROWN STOOL.
--- NOTE | 2020-12-03 07:15 | NUR ---
DIFFICULTY OBTAINING BP DOPPLER BP 78/DOP LEVOPHED INCREASED 20 MCG, VASOPRESSIN CONTINUES
--- NOTE | 2020-12-03 08:08 | NUR ---
ASSESSMENT- PT SEDATED WITH PROPOFOL GTT AT 60 MCG/KG/MIN AND FENTANYL ADVERTISING EDITOR INFUSION AT 100 MCG/HR. PARALYZED WITH NIMBEX GTT AT 2 MCG/KG/MIN-DECREASED TO 1 MCG/KG/MIN. TOF 4/4. NO SPONTANEOUS MOVEMENT NOTED. PERRL. TOLERATING VENT SETTINGS NOW WITH TIDAL VOLUMES 260-270 AND STABLE SATURATIONS. ORALLY INTUBATED, TUBE SECURE. LUNGS COARSE THROUGHOUT, DIMINISHED BIBASILAR. APICAL IRREGULAR, RATE TACHY, VARIABLE 110-150'S. LEVOPHED GTT FOR BP SUPPORT, ABLE TO DECREASE TO 24 MCG/MIN. SKIN PALE, COLD. PULSES PALPABLE PERIPHERALLY, MOTTLING KNEES AND FEET-ESPECIALLY HEELS. RIGHT FOOT TOES 3 AND 5 AND LEFT FOOT TOES 2,3,5 ALL DUSKY PURPLE COLOR. REPOSITIONED TO SUPINE. RIGHT ARM PICC INTACT, NS TKO, CALCIUM INFUSION STARTED. ABDOMEN SOFT BUT NO BOWEL SOUNDS. TUBE FEEDING OFF FOR HIGH RESIDUAL 600 CC DISCARDED. UO NONE VIA H[place]ILTON. RECTAL TUBE WITH LIQUID BROWN DRAINAGE.
--- NOTE | 2020-12-03 09:43 | NUR ---
PT WITH DECREASED SATURATIONS TO 81% . REPOSITIONED TO RIGHT SIDE WITH SOME IMPROVEMENT. DIFFICULT TO OBTAIN SATURATION READINGS
--- NOTE | 2020-12-03 10:54 | NUR ---
SATURATIONS LOW, ATTEMPT TO REPOSITION WITHOUT IMPROVEMENT. DR. MCGEE HERE-UDPATED. PXCR DONE-NO PNEUMOTHORAX. REPOSITIONED TO PRONE WITH MULTIPLE STAFF. EXTREMITIES COLD, DIFFICULT TO OBTAIN ACCURATE SATURATION
--- NOTE | 2020-12-03 12:15 | NUR ---
DIFFICULTY OBTAINING SATURATIONS-IMPROVED TO 86% WITH VENT CHANGES BY DR. MCGEE-INCREASED PEEP TO 20 TIDAL VOLUMES 200'S. NEEDED TO INCREASE LEVOPHED TO 30 MCG/MIN FOR BP SUPPORT. NO URINE OUTPUT. SINUS TACH WITH FREQUENT PACS. STRIPS REVIEWED.
--- NOTE | 2020-12-03 12:31 | NUR ---
rounding with customer service officer and care team. frail will get updated prognosis and supportive visit with . Will advised team he should not be coming to hospital to elderly and frail. pt kps sore is 20%
[2020-12-03 13:19] LABS: Bun/Creatinine Ratio 26.9 (12.0-20.0); Calcium, Blood 6.7 mg/dL (8.5-10.1); Creatinine, Blood 2.45 mg/dL (0.40-1.00)
--- NOTE | 2020-12-03 13:58 | NUR ---
PT HYPOTENSIVE, INCREASED HEARTRATE. NO RESPONSE TO TOF-NIMBEX ON HOLD. CRITICAL POTASSIUM. D50 WITH INSULIN AND BICARB GIVEN, HEARTRATE IMRPVED TO 120'S, NEOSYNEPHRINE GTT STARTED WITH IMPROVED BLOOD PRESSURE. REPOSITIONED IN PRONE WITH LEFT SIDE PROPPED UP, PILLOWS AND GEL PACKET TO RELIEVE PRESSURE POINTS
--- NOTE | 2020-12-03 16:17 | NUR ---
DR. MCGEE AT BEDSIDE. UNABLE TO OBTAIN BP PER MONITOR. BP 98/D. NEOSYNEPHRINE HAS BEEN TITRATED UP TO 200 MCG/MIN. PLANS FOR ECHO. MOTTLING WORSENING. SKIN COLD, PALE.
--- NOTE | 2020-12-03 17:23 | NUR ---
NOTIIFED PT'S OF PT'S POOR STATUS, HR VARIABLE. UNABLE TO READ CONSISTENT BLOOD PRESSURE WITH MONITOR, MOTTLING, POOR PERFUSION, NO URINE OUTPUT. ABG DONE BY THERAPIST. PH 6.83. DOPPLER BP 90/D
[2020-12-03 17:24] LABS: PCO2 Arterial 55.2 mmHg (35-45); PO2 Arterial 98.2 mmHg (80-100); pH Blood Arterial 6.83 (7.35-7.45)
--- NOTE | 2020-12-03 17:50 | NUR ---
DR. MCGEE HERE-NOTIFIED OF ABG. WILL ORDER BICARB. PT'S AND GRANDDAUGHER HERE AT BEDSIDE. CONFERENCED WITH DR. MCGEE. EXPLAINED PLAN OF CARE. PT'S STATES UNDERSTANDING OF POOR CONDITION, TEARFUL. MOTTLING INCREASING. SKIN COLD. UNABLE TO OBTAIN BP VIA MONITOR OR SATURATION READING. CONTINUE MEDICATIONS-LEVOPHED AT 30MCG/MIN, NEOSYNEPHRINE AT 200 MCG/MIN, VASOPRESSIN GTT, PROPOFOL AT 40 MCG/KG/MIN. FENTANYL GTT AT 100 MCG/HR-DECREASED TO 50 MCG/HR.
--- NOTE | 2020-12-03 18:55 | NUR ---
UPDATE TO DR. MCGEE REGARDING DOPPLER PRESSURES, EKG, LABS. LABS ORDERED. MAY INCREASE LEVOPHED TO 35 MCG/MIN IF NEEDED. FAMILY HERE-QUESTIONS ANSWERED. MOTTLING WORSENING. NAHCO3 INFUSING.
[2020-12-03 20:13] LABS: Hemoglobin 8.1 g/dL (11.5-16.0)
--- NOTE | 2020-12-03 20:53 | NUR ---
193 PATIENT STARTING TO JACKLYN AND QRS WIDENING, CALLED FOR CODE CART AND TO CALL DOCTOR MCGEE. HR 57 WITH PULSE, UNABLE TO OBTAIN BP. NEOSYNEPHRINE 200 MCG, LEVOPHED 35 MCG, BICARB DRIP 125 CC/HR, PROPOFOL 40 MCG, AND FENTANYL 50 MCG/HR. PATIENT BED DOWN FLAT AND PADS AND BACK BOARD PLACED, AND CODE BLUE CALLED SEE CODE SHEET. ETT IN PLACE WITH NO CHANGES TO VENT SETTINGS, UNABLE TO OBTAIN BIOX READING DUE TO PATIENT BEING MOTTLED AND COLD. 1948 PATIENTS AND OTHER FAMILY TO ROOM, PATIENT WITH PULSE BP 120/DOP, CONTINUE TO NOT BE ABLE TO GET NIBP. 1954 BP 98/DOP, DOCTOR ARELY SPOKE WITH AND DAUGHTER MAKING PATIENT DNR, CONTINUE WITH SAME TREATMENT ADDING EPI DRIP. 1999 EPI DRIP STARTED 8 MCG, NIBP CONTINUES TO BE DIFFICULT TO OBTAIN. PATIENTS FAMILY IN ROOM. 2009 HEART RATE DOWN TO 56. INCREASED EPI TO 10 MCG 2019 PATIENT ASYSTOLE WITH NO HEART TONES, FAMILY AT BEDSIDE, VENT AND DRIPS OFF.
--- NOTE | 2020-12-03 20:59 | NUR ---
pt declining code called pt still had pulse but in dyrythmias. Spoke with eldest son about exptrodinary suffering for them both and cpr would be unkind. So wittnessed code for a few minute and he and his siter made the call to stop and father stated he wanted them to make the he could not. children brought in to say goodbye and she was made comfort and passed peacfully. Family gatherd for prayer and sang amazing alida. Supportive care for family and they left will call with funneral home.
[2020-12-03 21:04] LABS: Bun/Creatinine Ratio 31.7 (12.0-20.0); Calcium, Blood 9.1 mg/dL (8.5-10.1); Creatinine, Blood 2.49 mg/dL (0.40-1.00); Potassium, Blood 7.3 mmol/L (3.5-5.5)
== END 2020-12-03 20:20 | DRG 870 ==
LOC: ER 18:56 → ICUE 22:30 → PCU 22:30 → ERHOLD 22:30 → MEDS 11-25 15:42 → UNDODEPER 11-25 23:55 → PCU 11-27 21:37 → MEDS 11-28 18:59 → ICUE 11-29 09:34
PROVIDERS: Emergency Medicine; Family Medicine; Hospitalist; Internal Medicine; Internal Medicine Critical Care Medicine; Student in an Organized Health Care Education/Training Program; ADMIT Internal Medicine
PROC: 8E0ZXY6 Isolation (ICD-10-PCS; principal; 2020-11-24)
PROC: 02HV33Z Insertion of Infusion Device into Superior Vena Cava, Percutaneous Approach (ICD-10-PCS; 2020-11-24)
PROC: 5A1955Z Respiratory Ventilation, Greater than 96 Consecutive Hours (ICD-10-PCS; 2020-11-29)
PROC: 0BH18EZ Insertion of Endotracheal Airway into Trachea, Via Natural or Artificial Opening Endoscopic (ICD-10-PCS; 2020-11-29)
PROC: 3E033XZ Introduction of Vasopressor into Peripheral Vein, Percutaneous Approach (ICD-10-PCS; 2020-11-29)
PROC: 3E0333Z Introduction of Anti-inflammatory into Peripheral Vein, Percutaneous Approach (ICD-10-PCS; 2020-11-29)
PROC: XW033E5 Introduction of Remdesivir Anti-infective into Peripheral Vein, Percutaneous Approach, New Technology Group 5 (ICD-10-PCS; 2020-11-29)
PROC: 5A09557 Assistance with Respiratory Ventilation, Greater than 96 Consecutive Hours, Continuous Positive Airway Pressure (ICD-10-PCS; 2020-11-29)
PROC: 0B9L8ZZ Drainage of Left Lung, Via Natural or Artificial Opening Endoscopic (ICD-10-PCS; 2020-12-02)
DX: A41.89 Other specified sepsis (principal); U07.1 COVID-19; J96.01 Acute respiratory failure with hypoxia; J12.82 Pneumonia due to coronavirus disease 2019; G92 Toxic encephalopathy; R65.21 Severe sepsis with septic shock; N17.9 Acute kidney failure, unspecified; Q89.3 Situs inversus; Z51.5 Encounter for palliative care; N18.30 Chronic kidney disease, stage 3 unspecified; I12.9 Hypertensive chronic kidney disease with stage 1 through stage 4 chronic kidney disease, or unspecified chronic kidney disease; E03.9 Hypothyroidism, unspecified; E78.5 Hyperlipidemia, unspecified; E11.22 Type 2 diabetes mellitus with diabetic chronic kidney disease; Z88.1 Allergy status to other antibiotic agents; Z88.2 Allergy status to sulfonamides; Z79.82 Long term (current) use of aspirin; Z79.899 Other long term (current) drug therapy
CPT/HCPCS: 31500; 31720; 36415; 36569; 36600; 51701; 71045; 80048; 80053; 80202; 81001; 82330; 82803; 82947; 83605; 83735; 84100; 84145; 85014; 85018; 85025; 87040; 87070; 87077; 87205; 93306; 94002; 94003; 94640; 94660; 94760; 94762; 96360; 96361; 99285-25; A9270; C1751; C9113; J0171; J0456; J0610; J0696; J1100; J1644; J1815; J1940; J1956; J2060; J2185; J2270; J2370; J2543; J2704; J3010; J3370; J7030; J7040; J7050; J7060; J7070; J7120; U0004